=== PATIENT | male | born 1995 | race Caucasian/White ===

== ENCOUNTER 2020-04-22 13:07 | Inpatient (IN) | payer SELFPAY ==
[~2020-04-22] VITALS: Ht 182.9 cm; Wt 102.9 kg
[~2020-04-22 13:07] MED LIST: ACET325T9 PO; AMOX1TAB11 PO; CALC200T23 PO; CITA10TA8 PO; LACT1CAP19 PO; OXYC1TAB19 PO; POTA20TA4 PO; TRAZ-118 PO
--- NOTE | 2020-04-22 13:42 | PHYS DOC ---
Past Medical History Past Medical History: Diverticulitis Past Surgical History: No Surgical History Smoking Status: Never Smoker Alcohol Use: None General Adult EDM: Chief Complaint: NAUSEA/VOMITING/DIARRHEA HPI: HPI: Patient is a 25 year old male presented to ER with left lower abdominal pain associate with nausea vomiting with some diarrhea since this morning. Patient has history of diverticulitis recently, he was admitted at this hospital. While he was in the hospital he had diarrhea and nausea mild vomiting abdominal pain. Patient was given Dilaudid and fentanyl in the hospital for pain control. Patient was sent home with Augmentin. Patient with test negative for C. difficile colitis while he was in the hospital. Patient said symptom is similar to his previous diverticulitis infection. Patient denies any cough or fever. Patient denies being exposed to anybody who tested positive for COVID-19. Review of Systems: Review of Systems: Constitutional: Denies fever or chills. [] Eyes: Denies change in visual acuity. [] HENT: Denies nasal congestion or sore throat. [] Respiratory: Denies cough or shortness of breath. [] Cardiovascular: Denies chest pain or edema. [] GI: Positive for left lower abdominal pain, nausea vomiting, diarrhea : Denies dysuria. [] Musculoskeletal: Denies back pain or joint pain. [] Integument: Denies rash. [] Neurologic: Denies headache, focal weakness or sensory changes. [] Endocrine: Denies polyuria or polydipsia. [] Lymphatic: Denies swollen glands. [] Psychiatric: Denies depression or anxiety. [] Heart Score: Risk Factors: Risk Factors: DM, Current or recent (<one month) smoker, HTN, HLP, family history of CAD, obesity. Risk Scores: Score 0 - 3: 2.5% MACE over next 6 weeks - Discharge Home Score 4 - 6: 20.3% MACE over next 6 weeks - Admit for Clinical Observation Score 7 - 10: 72.7% MACE over next 6 weeks - Early Invasive Strategies Current Medications: Current Medications Medications (Trade) Dose Ordered Sig/Gayatri Start Time Stop Time Status Last Admin Dose Admin Ondansetron HCl (Zofran) 8 mg 1X ONCE 04/22/20 13:45 04/22/20 13:46 04/22/20 13:39 8 MG Allergies: Allergies: Allergies Coded Allergies Type Severity Reaction Last Updated Verified No Known Drug Allergies 03/30/20 No Physical Exam: PE: Constitutional: Well developed, well nourished, no acute distress, non-toxic appearance. [] HENT: Normocephalic, atraumatic, bilateral external ears normal, oropharynx moist, no oral exudates, nose normal. [] Eyes: PERRLA, EOMI, conjunctiva normal, no discharge. [] Neck: Normal range of motion, no tenderness, supple, no stridor. [] Cardiovascular:Heart rate regular rhythm, no murmur [] Lungs & Thorax: Bilateral breath sounds clear to auscultation [] Abdomen: Bowel sounds normal, soft, There is tenderness to palpation LLQ, NO REBOUND, NO GUARDING, no masses, no pulsatile masses. [] Skin: Warm, dry, no erythema, no rash. [] Back: No tenderness, no CVA tenderness. [] Extremities: No tenderness, no cyanosis, no clubbing, ROM intact, no edema. [] Neurologic: Alert and oriented X 3, normal motor function, normal sensory function, no focal deficits noted. [] Psychologic: Affect normal, judgement normal, mood normal. [] Current Patient Data: Labs: Laboratory Tests Test 04/22/20 13:32 04/22/20 14:00 04/22/20 17:20 Sodium Level 139 mmol/L Potassium Level 4.1 mmol/L Chloride Level 102 mmol/L Carbon Dioxide Level 22 mmol/L Anion Gap 15 Blood Urea Nitrogen 10 mg/dL Creatinine 1.2 mg/dL Estimated GFR (Cockcroft-Gault) 72.6 BUN/Creatinine Ratio 8 Glucose Level 175 mg/dL Calcium Level 10.0 mg/dL Total Bilirubin 0.7 mg/dL Aspartate Amino Transf (AST/SGOT) 46 U/L Alanine Aminotransferase (ALT/SGPT) 76 U/L Alkaline Phosphatase 50 U/L Total Protein 8.2 g/dL Albumin 4.5 g/dL Albumin/Globulin Ratio 1.2 Lipase 165 U/L White Blood Count 15.6 x10^3/uL Red Blood Count 5.42 x10^6/uL Hemoglobin 15.7 g/dL Hematocrit 45.5 % Mean Corpuscular Volume 84 fL Mean Corpuscular Hemoglobin 29 pg Mean Corpuscular Hemoglobin Concent 35 g/dL Red Cell Distribution Width 14.2 % Platelet Count 308 x10^3/uL Neutrophils (%) (Auto) 84 % Lymphocytes (%) (Auto) 10 % Monocytes (%) (Auto) 6 % Eosinophils (%) (Auto) 0 % Basophils (%) (Auto) 1 % Neutrophils # (Auto) 13.1 x10^3/uL Lymphocytes # (Auto) 1.5 x10^3/uL Monocytes # (Auto) 0.9 x10^3/uL Eosinophils # (Auto) 0.1 x10^3/uL Basophils # (Auto) 0.1 x10^3/uL Segmented Neutrophils % 89 % Band Neutrophils % 1 % Lymphocytes % 7 % Monocytes % 3 % Platelet Estimate Adequate Urine Collection Type Unknown Urine Color Yellow Urine Clarity Clear Urine pH 8.5 Urine Specific [place] >=1.030 Urine Protein Negative mg/dL Urine Glucose (UA) Negative mg/dL Urine Ketones (Stick) 40 mg/dL Urine Blood Negative Urine Nitrite Negative Urine Bilirubin Negative Urine Urobilinogen Dipstick 0.2 mg/dL Urine Leukocyte Esterase Negative Urine RBC 0 /HPF Urine WBC 0 /HPF Urine Bacteria 0 /HPF Urine Mucus Slight /LPF Urine Opiates Screen Pos Urine Methadone Screen Neg Urine Barbiturates Neg Urine Phencyclidine Screen Neg Urine Amphetamine/Methamphetamine Neg Urine Benzodiazepines Screen Neg Urine Cocaine Screen Neg Urine Cannabinoids Screen Pos Urine Ethyl Alcohol Neg Current Medications Medications (Trade) Dose Ordered Sig/Gayatri Route PRN Reason Start Time Stop Time Status Last Admin Dose Admin Ondansetron HCl (Zofran) 8 mg 1X ONCE IVP 04/22/20 13:45 04/22/20 13:46 DC 04/22/20 13:39 Metronidazole 100 ml @ 100 mls/hr 1X ONCE IV 04/22/20 14:00 04/22/20 14:59 DC 04/22/20 13:58 Morphine Sulfate (Morphine Sulfate) 4 mg 1X ONCE IV 04/22/20 14:00 04/22/20 14:01 DC 04/22/20 13:56 Piperacillin Sod/ Tazobactam Sod 3.375 gm/Sodium Chloride 50 ml @ 100 mls/hr 1X ONCE IV 04/22/20 14:45 04/22/20 15:14 DC 04/22/20 14:51 Sodium Chloride 1,000 ml @ 1,000 mls/hr 1X ONCE IV 04/22/20 14:45 04/22/20 15:44 DC 04/22/20 14:50 Iohexol (Omnipaque 300 Mg/ml) 75 ml 1X ONCE IV 04/22/20 15:00 04/22/20 15:01 DC 04/22/20 15:00 Metoclopramide HCl (Reglan Vial) 10 mg 1X ONCE IVP 04/22/20 15:00 04/22/20 15:01 DC 04/22/20 14:54 Info (CONTRAST GIVEN -- Rx MONITORING) 1 each PRN DAILY PRN MC SEE COMMENTS 04/22/20 15:00 04/24/20 14:59 Morphine Sulfate (Morphine Sulfate) 4 mg 1X ONCE IV 04/22/20 16:15 04/22/20 16:16 DC 04/22/20 16:11 Ondansetron HCl (Zofran) 4 mg 1X ONCE IVP 04/22/20 16:15 04/22/20 16:16 DC 04/22/20 16:12 Vital Signs: Vital Signs Date Time Temp Pulse Resp B/P (MAP) Pulse Ox O2 Delivery O2 Flow Rate FiO2 04/22/20 13:19 97.4 67 18 137/74 (95) 100 Room Air 97.4 EKG: EKG: [] Radiology/Procedures: Radiology/Procedures: [facility] [address] [facility] [place], [place] [id number] IMAGING REPORT Signed PATIENT: MILANA SONI ACCOUNT: [id number] : 1995 LOCATION: ER AGE: 25 SEX: M EXAM STATUS: REG ER ORD. PHYSICIAN: GEORGE LINO DO REASON: llq abdominal pain PROCEDURE: CT ABD PELV W/ IV CONTRST ONLY CT abdomen pelvis with contrast dated 04/22/2020. No comparison available. Clinical data indication: Left lower quadrant pain. TECHNIQUE: Contiguous axial imaging the abdomen pelvis performed after the administration of 75 cc Omnipaque 300. One or more of the following individualized dose reduction techniques were utilized for this examination: 1. Automated exposure control 2. Adjustment of the mA and/or kV according to patient size 3. Use of iterative reconstruction technique. FINDINGS: Limited images of lung bases are clear. Heart size within normal limits. No pleural or pericardial effusion. Liver is of diffuse low density, compatible with fatty infiltration. No apparent mass. Biliary tree normal in caliber. Gallbladder unremarkable. Spleen is normal in size. Pancreas, adrenal glands and kidneys are unremarkable. No hydronephrosis. Unopacified GI tract normal in caliber and contour. No focal bowel wall thickening. There are scattered diverticula throughout the colon. No paracolonic inflammatory changes. No free fluid or lymphadenopathy. The appendix is normal in caliber. Abdominal aorta normal in caliber. Images of pelvis show nondistended urinary bladder. Prostate gland is upper limits of normal in size. No free fluid or lymphadenopathy. Bone windows show no acute findings. IMPRESSION: 1. No acute abnormality of abdomen or pelvis. Normal appendix. 2. Diverticulosis with no evidence of acute diverticulitis. 3. Mild fatty infiltration of the liver. Electronically signed by: Haroon Montiel MD (04/22/2020 3:59 PM) [facility] DICTATED and SIGNED BY: HAROON MONTIEL MD DATE: 04/22/20 155 Course & Med Decision Making: Course & Med Decision Making Pertinent Labs and Imaging studies reviewed. (See chart for details) Patient continues to have pain with nausea and vomiting, will need to admit him for iv fluid and iv medication. Discussed with Dr. Blas who agreed to admit the patient. Tim Disclaimer: Tim Disclaimer: This electronic medical record was generated, in whole or in part, using a voice recognition dictation system. Departure Departure Impression: Primary Impression: Intractable nausea and vomiting Additional Impressions: Abdominal pain Diarrhea Disposition: 09 ADMITTED INPT THIS HOSP Admitting Physician: [facility] (DR. BLAS) Condition: STABLE Referrals: DINA LAZARO MD (PCP) GEORGE LINO DO Apr 22, 2020 13:42
[2020-04-22] MEDS ORDERED: ONDANSETRON PF 4 MG/2 ML VIAL. IVP ONE ×2 (13:45→16:15)
[2020-04-22 13:58] LABS: CREATININE 1.2 mg/dL (0.7-1.3); GFR 72.6; POTASSIUM 4.1 mmol/L (3.5-5.1)
[2020-04-22] MEDS ORDERED: MORPHINE SULFATE 4 MG/ML VIAL. IV ONE ×2 (14:00→16:15)
[2020-04-22 14:06] LABS: ALBUMIN 4.5 g/dL (3.4-5.0); ALBUMIN/GLOBULIN RATIO 1.2 (1.0-1.7); TOTAL BILIRUBIN 0.7 mg/dL (0.2-1.0); TOTAL PROTEIN 8.2 g/dL (6.4-8.2)
[2020-04-22 14:07] LABS: BASO # 0.1 x10^3/uL (0.0-0.2); BASO % 1 % (0-3); EOS # 0.1 x10^3/uL (0.0-0.7); EOS % 0 % (0-3); HEMATOCRIT 45.5 % (39.0-53.0); HEMOGLOBIN 15.7 g/dL (13.0-17.5); LYMPH # 1.5 x10^3/uL (1.0-4.8); LYMPH % 10 % (24-48); MEAN CORPUSCULAR HEMOGLOBIN 29 pg (25-35); MEAN CORPUSCULAR HGB CONC 35 g/dL (31-37); MEAN CORPUSCULAR VOLUME 84 fL (79-100); MONO # 0.9 x10^3/uL (0.0-1.1); MONO % 6 % (0-9); NEUT # 13.1 x10^3/uL (1.8-7.7); NEUT % 84 % (31-73); PLATELET COUNT 308 x10^3/uL (140-400); RED BLOOD COUNT 5.42 x10^6/uL (4.30-5.70); RED CELL DISTRIBUTION WIDTH 14.2 % (11.5-14.5); WHITE BLOOD COUNT 15.6 x10^3/uL (4.0-11.0)
[2020-04-22] MEDS ORDERED: PIPERACILLIN/TAZOBACTAM 3.375 GM in IV NORMAL SALINE 50ML 50 ML IV ONE (14:45)
[2020-04-22] MEDS ORDERED: IV NORMAL SALINE 1000ML BAG 1,000 ML IV ONE (14:45)
[2020-04-22] MEDS ORDERED: CONTRAST GIVEN. MC PRN (15:00)
[2020-04-22] MEDS ORDERED: IOHEXOL 300 MG/ML 100ML VIAL. IV ONE (15:00)
[2020-04-22] MEDS ORDERED: METOCLOPRAMIDE HCL 10 MG/2 ML VIAL. IVP ONE (15:00)
[2020-04-22 15:20] LABS: % BANDS 1 % (0-9); % LYMPHS 7 % (24-48); % MONOS 3 % (0-10); % SEGS 89 % (35-66); PLT ESTIMATE ADEQUATE (ADEQUATE)
--- NOTE | 2020-04-22 16:02 | RAD ---
CT abdomen pelvis with contrast dated 04/22/2020. No comparison available. Clinical data indication: Left lower quadrant pain. TECHNIQUE: Contiguous axial imaging the abdomen pelvis performed after the administration of 75 cc Omnipaque 300. One or more of the following individualized dose reduction techniques were utilized for this examination: 1. Automated exposure control 2. Adjustment of the mA and/or kV according to patient size 3. Use of iterative reconstruction technique. FINDINGS: Limited images of lung bases are clear. Heart size within normal limits. No pleural or pericardial effusion. Liver is of diffuse low density, compatible with fatty infiltration. No apparent mass. Biliary tree normal in caliber. Gallbladder unremarkable. Spleen is normal in size. Pancreas, adrenal glands and kidneys are unremarkable. No hydronephrosis. Unopacified GI tract normal in caliber and contour. No focal bowel wall thickening. There are scattered diverticula throughout the colon. No paracolonic inflammatory changes. No free fluid or lymphadenopathy. The appendix is normal in caliber. Abdominal aorta normal in caliber. Images of pelvis show nondistended urinary bladder. Prostate gland is upper limits of normal in size. No free fluid or lymphadenopathy. Bone windows show no acute findings. IMPRESSION: 1. No acute abnormality of abdomen or pelvis. Normal appendix. 2. Diverticulosis with no evidence of acute diverticulitis. 3. Mild fatty infiltration of the liver. Electronically signed by: Haroon Montiel MD (04/22/2020 3:59 PM) JONATHAN
[2020-04-22] MEDS ORDERED: IV NORMAL SALINE 1000ML BAG 1,000 ML IV SCH (16:39)
[2020-04-22] MEDS ORDERED: ONDANSETRON PF 4 MG/2 ML VIAL. IV PRN (16:45)
[2020-04-22] MEDS ORDERED: fentaNYL PF VIAL 100 MCG/2 ML VIAL IV PRN (16:45)
[2020-04-22 17:32] LABS: BILIRUBIN,URINE NEGATIVE (NEG); CLARITY,URINE CLEAR; COLOR,URINE YELLOW; NITRITE,URINE NEGATIVE (NEG); PH,URINE 8.5 (<5.0-8.0); PROTEIN,URINE NEGATIVE (NEG-TRACE); UROBILINOGEN,URINE 0.2 mg/dL (0.2 mg/dL)
[2020-04-22 17:40] LABS: BACTERIA,URINE 0 /HPF (0-FEW); RBC,URINE 0 /HPF (0-2); WBC,URINE 0 /HPF (0-4)
[2020-04-22] MEDS: IV NORMAL SALINE 1000ML BAG 1,000 ML IV SCH (18:00)
[2020-04-22] MEDS ORDERED: MAGNESIUM SULFATE 2GM 50 ML IV SCH (18:00)
[2020-04-22] MEDS ORDERED: ONDANSETRON PF 4 MG/2 ML VIAL. IVP PRN (18:00)
[2020-04-22] MEDS ORDERED: DEXTROSE 50% 25 GM / 50ML DISP.SYRIN. IV PRN (18:00)
[2020-04-22] MEDS ORDERED: DOCUSATE SODIUM 100 MG CAPSULE. PO PRN (18:00)
[2020-04-22] MEDS ORDERED: POTASSIUM CHLORIDE 10MEQ 100 ML IV PRN (18:00)
[2020-04-22] MEDS ORDERED: POTASSIUM CHLORIDE 10MEQ 100 ML IV SCH (18:00)
[2020-04-22] MEDS ORDERED: ACETAMINOPHEN 325 MG TABLET. PO PRN (18:00)
[2020-04-22] MEDS ORDERED: HYDROmorphone 2 MG/ML VIAL IVP PRN (18:00)
[2020-04-22] MEDS ORDERED: SENNOSIDES 8.6 MG TABLET PO PRN (18:00)
[2020-04-22] MEDS ORDERED: POTASSIUM CHLORIDE 20 MEQ TABLET.ER. PO PRN (18:00)
--- NOTE | 2020-04-22 18:14 | PDOC1 ---
History and Physical Date of Service: DOS: DATE: 04/22/20 TIME: 17:57 Chief Complaint: Chief Complain: N/V and ABD pain History of Present Illness: HPI: 25 year old male presented to ER with left lower abdominal pain associate with nausea vomiting with some diarrhea since this morning. Patient has history of diverticulitis recently, he was admitted at this hospital. While he was in the hospital he had diarrhea and nausea mild vomiting abdominal pain. Patient was given Dilaudid and fentanyl in the hospital for pain control. Patient was sent home with Augmentin. Patient with test negative for C. difficile colitis while he was in the hospital. Patient said symptom is similar to his previous diverticulitis infection. Patient denies any cough or fever. Patient denies being exposed to anybody who tested positive for COVID-19. Past Medical/Surgical History: PMH/PSH: Past Medical History: Diverticulitis Past Surgical History: No Surgical History Allergies: Allergies: Coded Allergies: No Known Drug Allergies (Unverified , 03/30/20) Family History: Family History: Reviewed, mother with history of diabetes and colon cancer. No history of Crohn's, ulcerative colitis, or celiac's disease Social History: Social History: Marijuana use but 2-3 times per week Current Medications: Current Medications Current Medications Ondansetron HCl (Zofran) 8 mg 1X ONCE IVP Last administered on 04/22/20at 13:39; Start 04/22/20 at 13:45; Stop 04/22/20 at 13:46; Status DC Metronidazole 100 ml @ 100 mls/hr 1X ONCE IV Last administered on 04/22/20at 13:58; Start 04/22/20 at 14:00; Stop 04/22/20 at 14:59; Status DC Morphine Sulfate (Morphine Sulfate) 4 mg 1X ONCE IV Last administered on 04/22/20at 13:56; Start 04/22/20 at 14:00; Stop 04/22/20 at 14:01; Status DC Piperacillin Sod/ Tazobactam Sod 3.375 gm/Sodium Chloride 50 ml @ 100 mls/hr 1X ONCE IV Last administered on 04/22/20at 14:51; Start 04/22/20 at 14:45; Stop 04/22/20 at 15:14; Status DC Sodium Chloride 1,000 ml @ 1,000 mls/hr 1X ONCE IV Last administered on 04/22/20at 14:50; Start 04/22/20 at 14:45; Stop 04/22/20 at 15:44; Status DC Iohexol (Omnipaque 300 Mg/ml) 75 ml 1X ONCE IV Last administered on 04/22/20at 15:00; Start 04/22/20 at 15:00; Stop 04/22/20 at 15:01; Status DC Metoclopramide HCl (Reglan Vial) 10 mg 1X ONCE IVP Last administered on 04/22/20at 14:54; Start 04/22/20 at 15:00; Stop 04/22/20 at 15:01; Status DC Info (CONTRAST GIVEN -- Rx MONITORING) 1 each PRN DAILY PRN MC SEE COMMENTS; Start 04/22/20 at 15:00; Stop 04/24/20 at 14:59 Morphine Sulfate (Morphine Sulfate) 4 mg 1X ONCE IV Last administered on 04/22/20at 16:11; Start 04/22/20 at 16:15; Stop 04/22/20 at 16:16; Status DC Ondansetron HCl (Zofran) 4 mg 1X ONCE IVP Last administered on 04/22/20at 16:12; Start 04/22/20 at 16:15; Stop 04/22/20 at 16:16; Status DC Ondansetron HCl (Zofran) 4 mg PRN Q8HRS PRN IV NAUSEA/VOMITING; Start 04/22/20 at 16:45; Stop 04/23/20 at 16:44 Fentanyl Citrate (Fentanyl 2ml Vial) 50 mcg PRN Q1HR PRN IV PAIN Last administered on 04/22/20at 17:31; Start 04/22/20 at 16:45; Stop 04/23/20 at 16:44 Sodium Chloride 1,000 ml @ 100 mls/hr Q10H IV Last administered on 04/22/20at 17:31; Start 04/22/20 at 16:39; Stop 04/23/20 at 16:38 Active Scripts Active Culturelle (Lactobacillus Rhamnosus Gg) 1 Each Cap.sprink 1 Cap PO BID 30 Days Calcium Carbonate 200 Mg Tab.chew 500 Mg PO PRN Q3HRS PRN 10 Days Klor-Con M20 (Potassium Chloride) 20 Meq Tab.er.prt 20 Meq PO DAILYWBKFT 14 Days Trazodone Hcl 50 Mg Tablet 50 Mg PO QHS 30 Days Celexa (Citalopram Hydrobromide) 10 Mg Tablet 10 Mg PO DAILY 30 Days Tylenol (Acetaminophen) 325 Mg Tablet 650 Mg PO PRN Q6HRS PRN 30 Days Percocet 7.5-325 Mg Tablet (Oxycodone/Acetaminophen) 1 Each Tablet 1 Tab PO PRN Q4HRS PRN 10 Days Amox Tr-K Clv 875-125 Mg Tab (Amoxicillin/Potassium Clav) 1 Each Tablet 1 Tab PO BID 10 Days ROS: Review of Systems Review of System REVIEW OF SYSTEMS: GENERAL: Denies weakness SKIN: No bruising, hair changes or rashes. EYES: No blurred, double or loss of vision. NOSE AND THROAT: No history of nosebleeds, hoarseness or sore throat. HEART: No history of palpitations, chest pain or shortness of breath on exertion. LUNGS: Denies cough, hemoptysis, wheezing or shortness of breath. GASTROINTESTINAL: Denies changes in appetite, nausea, vomiting, diarrhea or constipation. GENITOURINARY: No history of frequency, urgency, hesitancy or nocturia. NEUROLOGIC: Denies history of numbness, tingling, or tremor. PSYCHIATRIC: No history of panic, anxiety or depression. ENDOCRINE: No history of heat or cold intolerance, polyuria or polydipsia. EXTREMITIES: Denies joint pain, pain on walking or stiffness. Physical Exam: Vital Signs: Vital Signs Date Time Temp Pulse Resp B/P (MAP) Pulse Ox O2 Delivery O2 Flow Rate FiO2 04/22/20 17:20 70 131/76 (94) 100 Nasal Cannula 2.0 04/22/20 16:37 16 04/22/20 16:00 97.9 97.9 Physcial Exam: GEN: No apparent distress. Alert and oriented HEENT: Normal cephalic, atraumatic, external auditory canals are patent EYES: Extraocular muscles are intact, pupil are equally round and reactive to light and accommodation MUSCULOSKELETAL: Well developed , well nourished, good range of motion ENDOCRINE: No thyromegaly was palpated LYMPHATICS: No cervical chain or axillary nodes were noted HEMATOPOIETIC: No bruising NECK: Supple, no JVD, no thyromegaly was noted LUNGS: Clear to auscultation in all lung grissom without rhonchi or wheezing HEART: RRR, S!, S2 present. Peripheral pulses intact, no obvious murmurs noted ABDOMEN: Soft, nontender. Positive bowel sounds, no organomegaly, normal bowel sounds EXTREMITIES: Without clubbing, cyanosis, or edema. Pedal pulses intact. Negative Homans sign NEUROLOGIC: Normal speech and tone. A&O x 3, moves all extremities, no obvious focal deficits PSYCHIATRIC: Normal affect, normal mood. Stable SKIN: No ulcerations or rashes, good skin turgor, no jaundice VASCULAR: Good capillary refill, neurovascular bundle appears to be intact Labs: Labs: Laboratory Tests Test 04/22/20 13:32 04/22/20 14:00 04/22/20 17:20 Sodium Level 139 mmol/L (136-145) Potassium Level 4.1 mmol/L (3.5-5.1) Chloride Level 102 mmol/L (98-107) Carbon Dioxide Level 22 mmol/L (21-32) Anion Gap 15 (6-14) Blood Urea Nitrogen 10 mg/dL (8-26) Creatinine 1.2 mg/dL (0.7-1.3) Estimated GFR (Cockcroft-Gault) 72.6 BUN/Creatinine Ratio 8 (6-20) Glucose Level 175 mg/dL (70-99) Calcium Level 10.0 mg/dL (8.5-10.1) Total Bilirubin 0.7 mg/dL (0.2-1.0) Aspartate Amino Transf (AST/SGOT) 46 U/L (15-37) Alanine Aminotransferase (ALT/SGPT) 76 U/L (16-63) Alkaline Phosphatase 50 U/L (46-116) Total Protein 8.2 g/dL (6.4-8.2) Albumin 4.5 g/dL (3.4-5.0) Albumin/Globulin Ratio 1.2 (1.0-1.7) Lipase 165 U/L (73-393) White Blood Count 15.6 x10^3/uL (4.0-11.0) Red Blood Count 5.42 x10^6/uL (4.30-5.70) Hemoglobin 15.7 g/dL (13.0-17.5) Hematocrit 45.5 % (39.0-53.0) Mean Corpuscular Volume 84 fL (79-100) Mean Corpuscular Hemoglobin 29 pg (25-35) Mean Corpuscular Hemoglobin Concent 35 g/dL (31-37) Red Cell Distribution Width 14.2 % (11.5-14.5) Platelet Count 308 x10^3/uL (140-400) Neutrophils (%) (Auto) 84 % (31-73) Lymphocytes (%) (Auto) 10 % (24-48) Monocytes (%) (Auto) 6 % (0-9) Eosinophils (%) (Auto) 0 % (0-3) Basophils (%) (Auto) 1 % (0-3) Neutrophils # (Auto) 13.1 x10^3/uL (1.8-7.7) Lymphocytes # (Auto) 1.5 x10^3/uL (1.0-4.8) Monocytes # (Auto) 0.9 x10^3/uL (0.0-1.1) Eosinophils # (Auto) 0.1 x10^3/uL (0.0-0.7) Basophils # (Auto) 0.1 x10^3/uL (0.0-0.2) Segmented Neutrophils % 89 % (35-66) Band Neutrophils % 1 % (0-9) Lymphocytes % 7 % (24-48) Monocytes % 3 % (0-10) Platelet Estimate Adequate (ADEQUATE) Urine Collection Type Unknown Urine Color Yellow Urine Clarity Clear Urine pH 8.5 (<5.0-8.0) Urine Specific [place] >=1.030 (1.000-1.030) Urine Protein Negative mg/dL (NEG-TRACE) Urine Glucose (UA) Negative mg/dL (NEG) Urine Ketones (Stick) 40 mg/dL (NEG) Urine Blood Negative (NEG) Urine Nitrite Negative (NEG) Urine Bilirubin Negative (NEG) Urine Urobilinogen Dipstick 0.2 mg/dL (0.2 mg/dL) Urine Leukocyte Esterase Negative (NEG) Urine RBC 0 /HPF (0-2) Urine WBC 0 /HPF (0-4) Urine Bacteria 0 /HPF (0-FEW) Urine Mucus Slight /LPF Laboratory Tests Test 04/22/20 13:32 04/22/20 14:00 04/22/20 17:20 Sodium Level 139 mmol/L (136-145) Potassium Level 4.1 mmol/L (3.5-5.1) Chloride Level 102 mmol/L (98-107) Carbon Dioxide Level 22 mmol/L (21-32) Anion Gap 15 (6-14) Blood Urea Nitrogen 10 mg/dL (8-26) Creatinine 1.2 mg/dL (0.7-1.3) Estimated GFR (Cockcroft-Gault) 72.6 BUN/Creatinine Ratio 8 (6-20) Glucose Level 175 mg/dL (70-99) Calcium Level 10.0 mg/dL (8.5-10.1) Total Bilirubin 0.7 mg/dL (0.2-1.0) Aspartate Amino Transf (AST/SGOT) 46 U/L (15-37) Alanine Aminotransferase (ALT/SGPT) 76 U/L (16-63) Alkaline Phosphatase 50 U/L (46-116) Total Protein 8.2 g/dL (6.4-8.2) Albumin 4.5 g/dL (3.4-5.0) Albumin/Globulin Ratio 1.2 (1.0-1.7) Lipase 165 U/L (73-393) White Blood Count 15.6 x10^3/uL (4.0-11.0) Red Blood Count 5.42 x10^6/uL (4.30-5.70) Hemoglobin 15.7 g/dL (13.0-17.5) Hematocrit 45.5 % (39.0-53.0) Mean Corpuscular Volume 84 fL (79-100) Mean Corpuscular Hemoglobin 29 pg (25-35) Mean Corpuscular Hemoglobin Concent 35 g/dL (31-37) Red Cell Distribution Width 14.2 % (11.5-14.5) Platelet Count 308 x10^3/uL (140-400) Neutrophils (%) (Auto) 84 % (31-73) Lymphocytes (%) (Auto) 10 % (24-48) Monocytes (%) (Auto) 6 % (0-9) Eosinophils (%) (Auto) 0 % (0-3) Basophils (%) (Auto) 1 % (0-3) Neutrophils # (Auto) 13.1 x10^3/uL (1.8-7.7) Lymphocytes # (Auto) 1.5 x10^3/uL (1.0-4.8) Monocytes # (Auto) 0.9 x10^3/uL (0.0-1.1) Eosinophils # (Auto) 0.1 x10^3/uL (0.0-0.7) Basophils # (Auto) 0.1 x10^3/uL (0.0-0.2) Segmented Neutrophils % 89 % (35-66) Band Neutrophils % 1 % (0-9) Lymphocytes % 7 % (24-48) Monocytes % 3 % (0-10) Platelet Estimate Adequate (ADEQUATE) Urine Collection Type Unknown Urine Color Yellow Urine Clarity Clear Urine pH 8.5 (<5.0-8.0) Urine Specific [place] >=1.030 (1.000-1.030) Urine Protein Negative mg/dL (NEG-TRACE) Urine Glucose (UA) Negative mg/dL (NEG) Urine Ketones (Stick) 40 mg/dL (NEG) Urine Blood Negative (NEG) Urine Nitrite Negative (NEG) Urine Bilirubin Negative (NEG) Urine Urobilinogen Dipstick 0.2 mg/dL (0.2 mg/dL) Urine Leukocyte Esterase Negative (NEG) Urine RBC 0 /HPF (0-2) Urine WBC 0 /HPF (0-4) Urine Bacteria 0 /HPF (0-FEW) Urine Mucus Slight /LPF Images: Images IMPRESSION: 1. No acute abnormality of abdomen or pelvis. Normal appendix. 2. Diverticulosis with no evidence of acute diverticulitis. 3. Mild fatty infiltration of the liver. Assessment/Plan Assessment/Plan Acute abdominal pain with intractable nausea vomiting History of diverticulitis History of cannabinoid use Transaminitis consistent with hepatic steatosis Admit to medicine for further management GI consult Continue IV fluids Continue IV antiemetic medications Pending stool studies Pending C. difficile studies Continue IV antibiotics SCD for DVT prophylaxis Protonix GI prophylaxis N.p.o. Full code Discussed with RN and SW Disposition inpatient care as above Surrogate decision maker is the mother Justifications for Admission Other Justification Diverticulitis KRISTI AGUSTIN MD Apr 22, 2020 18:14
[2020-04-22] MEDS ORDERED: ELECTROLYTE (NON-ICU) PROTOCOL. MC PRN (18:30)
[2020-04-22] MEDS: PROCHLORPERAZINE 10 MG/2 ML VIAL. IV PRN (18:56)
[2020-04-22] MEDS: cefTRIAXone IV Push 1 GM VIAL. IVP SCH (19:02)
[2020-04-22] MEDS: HYDROmorphone 2 MG/ML VIAL IVP PRN (20:47)
[2020-04-22] MEDS ORDERED: MAGNESIUM OXIDE 400 MG TABLET PO SCH (21:00)
[2020-04-22 21:32] VITALS: BP 140/60
[2020-04-22] MEDS ORDERED: TRAZ-118 PO (21:37)
[2020-04-22 22:54] VITALS: BP 123/61
[2020-04-23] MEDS: IV NORMAL SALINE 1000ML BAG 1,000 ML IV SCH ×3 (03:01→21:13)
[2020-04-23] MEDS: HYDROmorphone 2 MG/ML VIAL IVP PRN ×3 (03:02→21:08)
[2020-04-23] MEDS: PROCHLORPERAZINE 10 MG/2 ML VIAL. IV PRN ×4 (03:02→21:08)
[2020-04-23 03:11] VITALS: BP 117/62
[2020-04-23 03:44] LABS: BARBITURATES NEG (NEG); BENZODIAZEPINES NEG (NEG); CANNABINOIDS POS (NEG); COCAINE NEG (NEG); METHADONE NEG (NEG); OPIATES POS (NEG); PHENCYCLIDINE NEG (NEG)
[2020-04-23 03:45] LABS: AMPHETAMINE/METHAMPHETAMINE NEG (NEG)
[2020-04-23 06:40] VITALS: BP 119/57
[2020-04-23 08:09] LABS: BASO # 0.1 x10^3/uL (0.0-0.2); BASO % 1 % (0-3); EOS # 0.1 x10^3/uL (0.0-0.7); EOS % 1 % (0-3); HEMATOCRIT 42.1 % (39.0-53.0); HEMOGLOBIN 13.8 g/dL (13.0-17.5); LYMPH % 19 % (24-48); MEAN CORPUSCULAR HEMOGLOBIN 28 pg (25-35); MEAN CORPUSCULAR HGB CONC 33 g/dL (31-37); MEAN CORPUSCULAR VOLUME 86 fL (79-100); MONO # 0.8 x10^3/uL (0.0-1.1); MONO % 8 % (0-9); NEUT # 7.7 x10^3/uL (1.8-7.7); NEUT % 72 % (31-73); PLATELET COUNT 232 x10^3/uL (140-400); RED BLOOD COUNT 4.92 x10^6/uL (4.30-5.70); RED CELL DISTRIBUTION WIDTH 14.5 % (11.5-14.5); WHITE BLOOD COUNT 10.7 x10^3/uL (4.0-11.0)
--- NOTE | 2020-04-23 08:09 | PDOC ---
[facility] [facility] PROGRESS NOTE Date of Service DOS: DATE: 04/23/20 TIME: 07:58 Chief Complaint Chief Complaint Acute abdominal pain with intractable nausea vomiting History of diverticulitis History of cannabinoid use Transaminitis consistent with hepatic steatosis Plan: Admit to medicine for further management GI consult Continue IV fluids Continue IV antiemetic medications Pending stool studies Pending C. difficile studies Continue IV antibiotics SCD for DVT prophylaxis Protonix GI prophylaxis N.p.o. Full code Discussed with RN and SW Disposition inpatient care as above Surrogate decision maker is the mother History of Present Illness History of Present Illness 25 year old male presented to ER with left lower abdominal pain associate with nausea vomiting with some diarrhea since this morning. Patient has history of diverticulitis recently, he was admitted at this hospital. While he was in the hospital he had diarrhea and nausea mild vomiting abdominal pain. Patient was given Dilaudid and fentanyl in the hospital for pain control. Patient was sent home with Augmentin. Patient with test negative for C. difficile colitis while he was in the hospital. Patient said symptom is similar to his previous diverticulitis infection. Patient denies any cough or fever. Patient denies being exposed to anybody who tested positive for COVID-19. 04/23: Patient is seen and evaluated bedside. Charts and labs reviewed. Patient with history diverticulitis and clinical signs of diverticulitis, recently discharged from our service earlier this month. Radiographic evidence of diverticulosis, without diverticulitis seen on CT abdomen/pelvis. Still complains of left lower quadrant abdominal pain. Had episode of vomiting overnight, denies further episodes of diarrhea. Will attempt clear liquid diet. Consult GI for further recommendations. Vitals/I&O Vitals/I&O: Vital Signs Date Time Temp Pulse Resp B/P (MAP) Pulse Ox O2 Delivery O2 Flow Rate FiO2 04/23/20 06:40 97.9 55 18 119/57 (77) 98 Room Air 97.9 04/22/20 17:20 2.0 I & O 04/22/20 04/22/20 04/23/20 15:00 23:00 07:00 Intake Total 100 ml 1500 ml 1200 ml Output Total 300 ml Balance 100 ml 1500 ml 900 ml Physical Exam General: Alert, Cooperative Heart: Regular rate Lungs: Clear Abdomen: Other (Left lower quadrant tenderness) Extremities: No clubbing Skin: No rashes Labs Labs: Laboratory Tests Test 04/22/20 13:32 10/25/20 14:00 04/22/20 17:20 Sodium Level 139 mmol/L (136-145) Potassium Level 4.1 mmol/L (3.5-5.1) Chloride Level 102 mmol/L (98-107) Carbon Dioxide Level 22 mmol/L (21-32) Anion Gap 15 (6-14) Blood Urea Nitrogen 10 mg/dL (8-26) Creatinine 1.2 mg/dL (0.7-1.3) Estimated GFR (Cockcroft-Gault) 72.6 BUN/Creatinine Ratio 8 (6-20) Glucose Level 175 mg/dL (70-99) Calcium Level 10.0 mg/dL (8.5-10.1) Total Bilirubin 0.7 mg/dL (0.2-1.0) Aspartate Amino Transf (AST/SGOT) 46 U/L (15-37) Alanine Aminotransferase (ALT/SGPT) 76 U/L (16-63) Alkaline Phosphatase 50 U/L (46-116) Total Protein 8.2 g/dL (6.4-8.2) Albumin 4.5 g/dL (3.4-5.0) Albumin/Globulin Ratio 1.2 (1.0-1.7) Lipase 165 U/L (73-393) White Blood Count 15.6 x10^3/uL (4.0-11.0) Red Blood Count 5.42 x10^6/uL (4.30-5.70) Hemoglobin 15.7 g/dL (13.0-17.5) Hematocrit 45.5 % (39.0-53.0) Mean Corpuscular Volume 84 fL (79-100) Mean Corpuscular Hemoglobin 29 pg (25-35) Mean Corpuscular Hemoglobin Concent 35 g/dL (31-37) Red Cell Distribution Width 14.2 % (11.5-14.5) Platelet Count 308 x10^3/uL (140-400) Neutrophils (%) (Auto) 84 % (31-73) Lymphocytes (%) (Auto) 10 % (24-48) Monocytes (%) (Auto) 6 % (0-9) Eosinophils (%) (Auto) 0 % (0-3) Basophils (%) (Auto) 1 % (0-3) Neutrophils # (Auto) 13.1 x10^3/uL (1.8-7.7) Lymphocytes # (Auto) 1.5 x10^3/uL (1.0-4.8) Monocytes # (Auto) 0.9 x10^3/uL (0.0-1.1) Eosinophils # (Auto) 0.1 x10^3/uL (0.0-0.7) Basophils # (Auto) 0.1 x10^3/uL (0.0-0.2) Segmented Neutrophils % 89 % (35-66) Band Neutrophils % 1 % (0-9) Lymphocytes % 7 % (24-48) Monocytes % 3 % (0-10) Platelet Estimate Adequate (ADEQUATE) Urine Collection Type Unknown Urine Color Yellow Urine Clarity Clear Urine pH 8.5 (<5.0-8.0) Urine Specific [place] >=1.030 (1.000-1.030) Urine Protein Negative mg/dL (NEG-TRACE) Urine Glucose (UA) Negative mg/dL (NEG) Urine Ketones (Stick) 40 mg/dL (NEG) Urine Blood Negative (NEG) Urine Nitrite Negative (NEG) Urine Bilirubin Negative (NEG) Urine Urobilinogen Dipstick 0.2 mg/dL (0.2 mg/dL) Urine Leukocyte Esterase Negative (NEG) Urine RBC 0 /HPF (0-2) Urine WBC 0 /HPF (0-4) Urine Bacteria 0 /HPF (0-FEW) Urine Mucus Slight /LPF Urine Opiates Screen Pos (NEG) Urine Methadone Screen Neg (NEG) Urine Barbiturates Neg (NEG) Urine Phencyclidine Screen Neg (NEG) Urine Amphetamine/Methamphetamine Neg (NEG) Urine Benzodiazepines Screen Neg (NEG) Urine Cocaine Screen Neg (NEG) Urine Cannabinoids Screen Pos (NEG) Urine Ethyl Alcohol Neg (NEG) Review of Systems Review of Systems: Denies fever, denies shortness of breath, denies chest pain. Assessment and Plan Assessmemt and Plan Problems Medical Problems: (1) Abdominal pain Status: Acute (2) Diarrhea Status: Acute (3) Intractable nausea and vomiting Status: Acute Comment Review of Relevant I have reviewed the following items lee (where applicable) has been applied. Medications: Current Medications Medications (Trade) Dose Ordered Sig/Gayatri Route PRN Reason Start Time Stop Time Status Last Admin Dose Admin Ondansetron HCl (Zofran) 8 mg 1X ONCE IVP 04/22/20 13:45 04/22/20 13:46 DC 04/22/20 13:39 Metronidazole 100 ml @ 100 mls/hr 1X ONCE IV 04/22/20 14:00 04/22/20 14:59 DC 04/22/20 13:58 Morphine Sulfate (Morphine Sulfate) 4 mg 1X ONCE IV 04/22/20 14:00 04/22/20 14:01 DC 04/22/20 13:56 Piperacillin Sod/ Tazobactam Sod 3.375 gm/Sodium Chloride 50 ml @ 100 mls/hr 1X ONCE IV 04/22/20 14:45 04/22/20 15:14 DC 04/22/20 14:51 Sodium Chloride 1,000 ml @ 1,000 mls/hr 1X ONCE IV 04/22/20 14:45 04/22/20 15:44 DC 04/22/20 14:50 Iohexol (Omnipaque 300 Mg/ml) 75 ml 1X ONCE IV 04/22/20 15:00 04/22/20 15:01 DC 04/22/20 15:00 Metoclopramide HCl (Reglan Vial) 10 mg 1X ONCE IVP 04/22/20 15:00 04/22/20 15:01 DC 04/22/20 14:54 Morphine Sulfate (Morphine Sulfate) 4 mg 1X ONCE IV 04/22/20 16:15 04/22/20 16:16 DC 04/22/20 16:11 Ondansetron HCl (Zofran) 4 mg 1X ONCE IVP 04/22/20 16:15 04/22/20 16:16 DC 04/22/20 16:12 Fentanyl Citrate (Fentanyl 2ml Vial) 50 mcg PRN Q1HR PRN IV PAIN 04/22/20 16:45 04/23/20 16:44 04/22/20 17:31 Sodium Chloride 1,000 ml @ 100 mls/hr Q10H IV 04/22/20 16:39 04/22/20 21:10 DC 04/22/20 17:31 Sodium Chloride 1,000 ml @ 100 mls/hr Q10H IV 04/22/20 18:00 04/23/20 03:01 Hydromorphone HCl (Dilaudid) 0.2 mg PRN Q4HRS PRN IVP MODERATE PAIN 4-6 04/22/20 18:00 04/22/20 18:57 Hydromorphone HCl (Dilaudid) 0.4 mg PRN Q4HRS PRN IVP SEVERE PAIN 7-10 04/22/20 18:00 04/23/20 03:02 Prochlorperazine Edisylate (Compazine) 10 mg PRN Q6HRS PRN IV NAUSEA/VOMITING 04/22/20 18:00 04/23/20 03:02 Ceftriaxone Sodium (Rocephin) 1 gm Q24H IVP 04/22/20 19:00 04/22/20 19:02 Metronidazole 100 ml @ 100 mls/hr 1X ONCE IV 04/22/20 18:30 04/22/20 19:29 DC 04/22/20 19:10 Justifications for Admission Abdominal Pain Indications Is NPO status required?: Yes Justification for admission: Patient may require to be NPO for greater 24hours making it medically necessary to manage patient as inpatient. Other Justification Diverticulitis MILANA CORDERO MD Apr 23, 2020 08:09
[2020-04-23 08:20] LABS: CALCIUM 8.9 mg/dL (8.5-10.1); GFR 89.6; MAGNESIUM 2.2 mg/dL (1.8-2.4); PHOSPHORUS 3.5 mg/dL (2.6-4.7); POTASSIUM 3.6 mmol/L (3.5-5.1)
[2020-04-23] MEDS: PANTOPRAZOLE IV PUSH 40 MG VIAL. IVP SCH (09:49)
[2020-04-23 11:00] VITALS: BP 115/55
--- NOTE | 2020-04-23 13:06 | PDOC2 ---
GI CONSULT Date of Service: DATE: 04/23/20 TIME: 12:54 Reason For Consult: recurrent diverticulitis HPI: HPI: 25 y/o male who we recently saw for diverticulitis. Recurrent symptoms for months. Again to ER w/ sudden onset of vomiting, LLQ pain, and liquid stools yesterday morning after taking a hot shower. After recent discharge, finished PO atbx, was eating and stooling normally, and LLQ pain improved (but has never completely resolved since symptoms began). Planned to f/u for outpt colonoscopy. No previous 'scopes. Some recent heartburn. No GB, pancreas, or PUD history. Fatty liver on imaging. Starting using marijuana for nausea after initial symptoms occurred in June. Stopped x 1.5 months - no help w/ avoidance of symptom recurrence. Is a nurse. C Diff negative last admission. PMH: PMH: MDD, CINDA right foot surgery FH: Family History: No pertinent hx (no IBD), Cancer (colon - mother), DM Social History: Smoke: No ALCOHOL: rare Drugs: Marijuana ROS: GEN: Denies fevers, chills, sweats HEENT: Denies blurred vision, sore throat CV: Denies chest pain RESP: Denies shortness of air, cough GI: Per HPI : Denies hematuria, dysuria ENDO: Denies weight changes NEURO: Denies confusion, dizziness MSK: Denies weakness, joint pain/swelling SKIN: Denies jaundice, pruritus Vitals: Vitals: Vital Signs Date Time Temp Pulse Resp B/P (MAP) Pulse Ox O2 Delivery O2 Flow Rate FiO2 04/23/20 11:00 98.4 59 18 115/55 (75) 98 Room Air 98.4 04/23/20 09:46 2.0 Labs: Labs: Laboratory Tests Test 04/22/20 13:32 04/22/20 14:00 04/22/20 17:20 04/22/20 19:05 Sodium Level 139 mmol/L (136-145) Potassium Level 4.1 mmol/L (3.5-5.1) Chloride Level 102 mmol/L (98-107) Carbon Dioxide Level 22 mmol/L (21-32) Anion Gap 15 (6-14) Blood Urea Nitrogen 10 mg/dL (8-26) Creatinine 1.2 mg/dL (0.7-1.3) Estimated GFR (Cockcroft-Gault) 72.6 BUN/Creatinine Ratio 8 (6-20) Glucose Level 175 mg/dL (70-99) Calcium Level 10.0 mg/dL (8.5-10.1) Total Bilirubin 0.7 mg/dL (0.2-1.0) Aspartate Amino Transf (AST/SGOT) 46 U/L (15-37) Alanine Aminotransferase (ALT/SGPT) 76 U/L (16-63) Alkaline Phosphatase 50 U/L (46-116) Total Protein 8.2 g/dL (6.4-8.2) Albumin 4.5 g/dL (3.4-5.0) Albumin/Globulin Ratio 1.2 (1.0-1.7) Lipase 165 U/L (73-393) White Blood Count 15.6 x10^3/uL (4.0-11.0) Red Blood Count 5.42 x10^6/uL (4.30-5.70) Hemoglobin 15.7 g/dL (13.0-17.5) Hematocrit 45.5 % (39.0-53.0) Mean Corpuscular Volume 84 fL (79-100) Mean Corpuscular Hemoglobin 29 pg (25-35) Mean Corpuscular Hemoglobin Concent 35 g/dL (31-37) Red Cell Distribution Width 14.2 % (11.5-14.5) Platelet Count 308 x10^3/uL (140-400) Neutrophils (%) (Auto) 84 % (31-73) Lymphocytes (%) (Auto) 10 % (24-48) Monocytes (%) (Auto) 6 % (0-9) Eosinophils (%) (Auto) 0 % (0-3) Basophils (%) (Auto) 1 % (0-3) Neutrophils # (Auto) 13.1 x10^3/uL (1.8-7.7) Lymphocytes # (Auto) 1.5 x10^3/uL (1.0-4.8) Monocytes # (Auto) 0.9 x10^3/uL (0.0-1.1) Eosinophils # (Auto) 0.1 x10^3/uL (0.0-0.7) Basophils # (Auto) 0.1 x10^3/uL (0.0-0.2) Segmented Neutrophils % 89 % (35-66) Band Neutrophils % 1 % (0-9) Lymphocytes % 7 % (24-48) Monocytes % 3 % (0-10) Platelet Estimate Adequate (ADEQUATE) Urine Collection Type Unknown Urine Color Yellow Urine Clarity Clear Urine pH 8.5 (<5.0-8.0) Urine Specific [place] >=1.030 (1.000-1.030) Urine Protein Negative mg/dL (NEG-TRACE) Urine Glucose (UA) Negative mg/dL (NEG) Urine Ketones (Stick) 40 mg/dL (NEG) Urine Blood Negative (NEG) Urine Nitrite Negative (NEG) Urine Bilirubin Negative (NEG) Urine Urobilinogen Dipstick 0.2 mg/dL (0.2 mg/dL) Urine Leukocyte Esterase Negative (NEG) Urine RBC 0 /HPF (0-2) Urine WBC 0 /HPF (0-4) Urine Bacteria 0 /HPF (0-FEW) Urine Mucus Slight /LPF Urine Opiates Screen Pos (NEG) Urine Methadone Screen Neg (NEG) Urine Barbiturates Neg (NEG) Urine Phencyclidine Screen Neg (NEG) Urine Amphetamine/Methamphetamine Neg (NEG) Urine Benzodiazepines Screen Neg (NEG) Urine Cocaine Screen Neg (NEG) Urine Cannabinoids Screen Pos (NEG) Urine Ethyl Alcohol Neg (NEG) Treponema pallidum Antibody Nonreactive (Nonreactive) Hepatitis A IgM Antibody Nonreactive (Nonreactive) Hepatitis B Surface Antigen Nonreactive (Nonreactive) Hepatitis B Core IgM Antibody Nonreactive (Nonreactive) Hepatitis C IgG Antibody Nonreactive (Nonreactive) HIV (1&2) Antibody Screen Nonreactive (Nonreactive) Test 04/23/20 07:22 White Blood Count 10.7 x10^3/uL (4.0-11.0) Red Blood Count 4.92 x10^6/uL (4.30-5.70) Hemoglobin 13.8 g/dL (13.0-17.5) Hematocrit 42.1 % (39.0-53.0) Mean Corpuscular Volume 86 fL (79-100) Mean Corpuscular Hemoglobin 28 pg (25-35) Mean Corpuscular Hemoglobin Concent 33 g/dL (31-37) Red Cell Distribution Width 14.5 % (11.5-14.5) Platelet Count 232 x10^3/uL (140-400) Neutrophils (%) (Auto) 72 % (31-73) Lymphocytes (%) (Auto) 19 % (24-48) Monocytes (%) (Auto) 8 % (0-9) Eosinophils (%) (Auto) 1 % (0-3) Basophils (%) (Auto) 1 % (0-3) Neutrophils # (Auto) 7.7 x10^3/uL (1.8-7.7) Lymphocytes # (Auto) 2.0 x10^3/uL (1.0-4.8) Monocytes # (Auto) 0.8 x10^3/uL (0.0-1.1) Eosinophils # (Auto) 0.1 x10^3/uL (0.0-0.7) Basophils # (Auto) 0.1 x10^3/uL (0.0-0.2) Sodium Level 143 mmol/L (136-145) Potassium Level 3.6 mmol/L (3.5-5.1) Chloride Level 107 mmol/L (98-107) Carbon Dioxide Level 25 mmol/L (21-32) Anion Gap 11 (6-14) Blood Urea Nitrogen 7 mg/dL (8-26) Creatinine 1.0 mg/dL (0.7-1.3) Estimated GFR (Cockcroft-Gault) 89.6 Glucose Level 88 mg/dL (70-99) Calcium Level 8.9 mg/dL (8.5-10.1) Phosphorus Level 3.5 mg/dL (2.6-4.7) Magnesium Level 2.2 mg/dL (1.8-2.4) C-Reactive Protein, Quantitative 8.2 mg/L (0-3.3) Allergies: Coded Allergies: No Known Drug Allergies (Unverified , 03/30/20) Medications: Current Medications Medications (Trade) Dose Ordered Sig/Gayatri Route PRN Reason Start Time Stop Time Status Last Admin Dose Admin Ondansetron HCl (Zofran) 8 mg 1X ONCE IVP 04/22/20 13:45 04/22/20 13:46 DC 04/22/20 13:39 Metronidazole 100 ml @ 100 mls/hr 1X ONCE IV 04/22/20 14:00 04/22/20 14:59 DC 04/22/20 13:58 Morphine Sulfate (Morphine Sulfate) 4 mg 1X ONCE IV 04/22/20 14:00 04/22/20 14:01 DC 04/22/20 13:56 Piperacillin Sod/ Tazobactam Sod 3.375 gm/Sodium Chloride 50 ml @ 100 mls/hr 1X ONCE IV 04/22/20 14:45 04/22/20 15:14 DC 04/22/20 14:51 Sodium Chloride 1,000 ml @ 1,000 mls/hr 1X ONCE IV 04/22/20 14:45 04/22/20 15:44 DC 04/22/20 14:50 Iohexol (Omnipaque 300 Mg/ml) 75 ml 1X ONCE IV 04/22/20 15:00 04/22/20 15:01 DC 04/22/20 15:00 Metoclopramide HCl (Reglan Vial) 10 mg 1X ONCE IVP 04/22/20 15:00 04/22/20 15:01 DC 04/22/20 14:54 Morphine Sulfate (Morphine Sulfate) 4 mg 1X ONCE IV 04/22/20 16:15 04/22/20 16:16 DC 04/22/20 16:11 Ondansetron HCl (Zofran) 4 mg 1X ONCE IVP 04/22/20 16:15 04/22/20 16:16 DC 04/22/20 16:12 Fentanyl Citrate (Fentanyl 2ml Vial) 50 mcg PRN Q1HR PRN IV PAIN 04/22/20 16:45 04/23/20 16:44 04/22/20 17:31 Sodium Chloride 1,000 ml @ 100 mls/hr Q10H IV 04/22/20 16:39 04/22/20 21:10 DC 04/22/20 17:31 Sodium Chloride 1,000 ml @ 100 mls/hr Q10H IV 04/22/20 18:00 04/23/20 03:01 Pantoprazole Sodium (PROTONIX VIAL for IV PUSH) 40 mg DAILYAC IVP 04/23/20 07:30 04/23/20 09:49 Hydromorphone HCl (Dilaudid) 0.2 mg PRN Q4HRS PRN IVP MODERATE PAIN 4-6 04/22/20 18:00 04/22/20 18:57 Hydromorphone HCl (Dilaudid) 0.4 mg PRN Q4HRS PRN IVP SEVERE PAIN 7-10 04/22/20 18:00 04/23/20 09:06 Prochlorperazine Edisylate (Compazine) 10 mg PRN Q6HRS PRN IV NAUSEA/VOMITING 04/22/20 18:00 04/23/20 09:07 Ceftriaxone Sodium (Rocephin) 1 gm Q24H IVP 04/22/20 19:00 04/22/20 19:02 Metronidazole 100 ml @ 100 mls/hr 1X ONCE IV 04/22/20 18:30 04/22/20 19:29 DC 04/22/20 19:10 Metronidazole 100 ml @ 100 mls/hr Q8HRS IV 04/23/20 08:30 04/23/20 08:54 Imaging: Imaging: CT A/P 04/22/20 IMPRESSION: 1. No acute abnormality of abdomen or pelvis. Normal appendix. 2. Diverticulosis with no evidence of acute diverticulitis. 3. Mild fatty infiltration of the liver. PE: GEN: NAD HEENT: Atraumatic, PERRL LUNGS: CTAB HEART: RRR ABD: NABS, S/ND, LLQ pain EXTREMITY: No edema SKIN: No rashes, no jaundice NEURO/PSYCH: A & O 3 A/P: A/P: Episodic vomiting (though not each time), LLQ pain, diarrhea x 6 months Recent diverticulitis - noted on CTs 03/30 and 04/04; discharged 04/06 Mildly elevated AST and ALT - viral Hep negative CRC screen, FH colon cancer Hepatic steatosis +marijuana -- Would really like some water or juice - gave okay to nurse. ?normal CT this time, on IV atbx Agree w/ PPI. Will return w/ Dr. Rosario. LITA KEVIN Apr 23, 2020 13:06
--- NOTE | 2020-04-23 13:49 | NUR ---
SS following for discharge planning. SS reviewed pt chart and discussed with pt RN. Pt is from home and is currently on room air. Self pay. Pt on IV Rocephin. PT/OT ordered and no needs at this time. Discharge plan is to home when medically ready. SS will continue to follow for discharge planning.
[2020-04-23 15:00] VITALS: BP 119/61
--- NOTE | 2020-04-23 18:12 | NUR ---
Have reviewed documentation completed by customer marketing intern and made changes as needed/appropriate
[2020-04-23] MEDS: cefTRIAXone IV Push 1 GM VIAL. IVP SCH (19:01)
[2020-04-23 19:50] VITALS: BP 127/74
[2020-04-23 23:30] VITALS: BP 103/55
[2020-04-24 03:35] VITALS: BP 119/80
[2020-04-24] MEDS: HYDROmorphone 2 MG/ML VIAL IVP PRN (03:43)
[2020-04-24 05:28] LABS: BASO # 0.1 x10^3/uL (0.0-0.2); BASO % 1 % (0-3); EOS # 0.2 x10^3/uL (0.0-0.7); EOS % 2 % (0-3); HEMATOCRIT 39.3 % (39.0-53.0); HEMOGLOBIN 13.2 g/dL (13.0-17.5); LYMPH # 2.1 x10^3/uL (1.0-4.8); LYMPH % 25 % (24-48); MEAN CORPUSCULAR HEMOGLOBIN 29 pg (25-35); MEAN CORPUSCULAR HGB CONC 34 g/dL (31-37); MEAN CORPUSCULAR VOLUME 85 fL (79-100); MONO # 0.6 x10^3/uL (0.0-1.1); MONO % 7 % (0-9); NEUT # 5.3 x10^3/uL (1.8-7.7); NEUT % 65 % (31-73); PLATELET COUNT 184 x10^3/uL (140-400); RED BLOOD COUNT 4.61 x10^6/uL (4.30-5.70); RED CELL DISTRIBUTION WIDTH 14.7 % (11.5-14.5); WHITE BLOOD COUNT 8.2 x10^3/uL (4.0-11.0)
[2020-04-24 05:49] LABS: CALCIUM 8.1 mg/dL (8.5-10.1); CREATININE 0.8 mg/dL (0.7-1.3); POTASSIUM 3.6 mmol/L (3.5-5.1)
[2020-04-24 07:00] VITALS: BP 140/59
[2020-04-24] MEDS: PROCHLORPERAZINE 10 MG/2 ML VIAL. IV PRN (08:13)
[2020-04-24] MEDS: PANTOPRAZOLE IV PUSH 40 MG VIAL. IVP SCH (08:13)
[2020-04-24 11:00] VITALS: BP 135/62
--- NOTE | 2020-04-24 11:29 | PDOC ---
Date of Service: DATE: 04/24/20 TIME: 11:27 Subjective: Subjective: Feels better - tolerated clears and advanced to full liquids. No n/v. LLQ pain is better. No diarrhea. Objective: Objective: Nurse says discharging today. Vital Signs: Vital Signs Date Time Temp Pulse Resp B/P (MAP) Pulse Ox O2 Delivery O2 Flow Rate FiO2 04/24/20 08:00 Room Air 2.0 04/24/20 07:00 98.0 93 16 140/59 (86) 93 98.0 Labs: Laboratory Tests Test 04/24/20 04:30 White Blood Count 8.2 x10^3/uL Red Blood Count 4.61 x10^6/uL Hemoglobin 13.2 g/dL Hematocrit 39.3 % Mean Corpuscular Volume 85 fL Mean Corpuscular Hemoglobin 29 pg Mean Corpuscular Hemoglobin Concent 34 g/dL Red Cell Distribution Width 14.7 % Platelet Count 184 x10^3/uL Neutrophils (%) (Auto) 65 % Lymphocytes (%) (Auto) 25 % Monocytes (%) (Auto) 7 % Eosinophils (%) (Auto) 2 % Basophils (%) (Auto) 1 % Neutrophils # (Auto) 5.3 x10^3/uL Lymphocytes # (Auto) 2.1 x10^3/uL Monocytes # (Auto) 0.6 x10^3/uL Eosinophils # (Auto) 0.2 x10^3/uL Basophils # (Auto) 0.1 x10^3/uL Sodium Level 142 mmol/L Potassium Level 3.6 mmol/L Chloride Level 107 mmol/L Carbon Dioxide Level 23 mmol/L Anion Gap 12 Blood Urea Nitrogen 5 mg/dL Creatinine 0.8 mg/dL Estimated GFR (Cockcroft-Gault) 116.0 Glucose Level 79 mg/dL Calcium Level 8.1 mg/dL PE: GEN: NAD LUNGS: CTAB HEART: RRR ABD: barely any tenderness LLQ NEURO/PSYCH: A & O 3 A/P: Episodic vomiting (though not each time), LLQ pain, diarrhea x 6 months +marijuana -- Plans to DC noted. Stop marijuana. Doesn't need antibiotics. Justicifation of Admission Dx: Justifications for Admission: Justification of Admission Dx: Yes LITA KEVIN Apr 24, 2020 11:29
[2020-04-24] MEDS ORDERED: PANT40TA77 PO (11:34)
[2020-04-24] MEDS ORDERED: PROC10TA57 PO (11:34)
--- NOTE | 2020-04-24 11:55 | NUR ---
DISCHARGED PATIENT TO HOME. DISCHARGE INSTRUCTIONS GIVEN. PIV REMOVED. ESCORTED PATIENT OFF UNIT PER WHEELCHAIR INTO A PRIVATE VEHICLE.
--- NOTE | 2020-04-24 11:55 | PDOC ---
[facility] [facility] PROGRESS NOTE Date of Service DOS: DATE: 04/24/20 TIME: 11:52 Chief Complaint Chief Complaint Acute abdominal pain with intractable nausea vomiting History of diverticulitis History of cannabinoid use Transaminitis consistent with hepatic steatosis History of Present Illness History of Present Illness 04/24/2020 Pt seen and examined ROGER RN ROGER Case management 04/23: Patient is seen and evaluated bedside. Charts and labs reviewed. Patient with history diverticulitis and clinical signs of diverticulitis, rece ntly discharged from our service earlier this month. Radiographic evidence of diverticulosis, without diverticulitis seen on CT abdomen/pelvis. Still complains of left lower quadrant abdominal pain. Had episode of vomiting overnight, denies further episodes of diarrhea. Will attempt clear liquid diet. Consult GI for further recommendations. Vitals/I&O Vitals/I&O: Vital Signs Date Time Temp Pulse Resp B/P (MAP) Pulse Ox O2 Delivery O2 Flow Rate FiO2 04/24/20 08:00 Room Air 2.0 04/24/20 07:00 98.0 93 16 140/59 (86) 93 98.0 I & O 04/23/20 04/23/20 04/24/20 15:00 23:00 07:00 Intake Total 100 ml 1450 ml Balance 100 ml 1450 ml Physical Exam General: Alert, Cooperative Heart: Regular rate Lungs: Clear Abdomen: Other (Left lower quadrant tenderness) Extremities: No clubbing Skin: No rashes Labs Labs: Laboratory Tests Test 04/24/20 04:30 White Blood Count 8.2 x10^3/uL (4.0-11.0) Red Blood Count 4.61 x10^6/uL (4.30-5.70) Hemoglobin 13.2 g/dL (13.0-17.5) Hematocrit 39.3 % (39.0-53.0) Mean Corpuscular Volume 85 fL (79-100) Mean Corpuscular Hemoglobin 29 pg (25-35) Mean Corpuscular Hemoglobin Concent 34 g/dL (31-37) Red Cell Distribution Width 14.7 % (11.5-14.5) Platelet Count 184 x10^3/uL (140-400) Neutrophils (%) (Auto) 65 % (31-73) Lymphocytes (%) (Auto) 25 % (24-48) Monocytes (%) (Auto) 7 % (0-9) Eosinophils (%) (Auto) 2 % (0-3) Basophils (%) (Auto) 1 % (0-3) Neutrophils # (Auto) 5.3 x10^3/uL (1.8-7.7) Lymphocytes # (Auto) 2.1 x10^3/uL (1.0-4.8) Monocytes # (Auto) 0.6 x10^3/uL (0.0-1.1) Eosinophils # (Auto) 0.2 x10^3/uL (0.0-0.7) Basophils # (Auto) 0.1 x10^3/uL (0.0-0.2) Sodium Level 142 mmol/L (136-145) Potassium Level 3.6 mmol/L (3.5-5.1) Chloride Level 107 mmol/L (98-107) Carbon Dioxide Level 23 mmol/L (21-32) Anion Gap 12 (6-14) Blood Urea Nitrogen 5 mg/dL (8-26) Creatinine 0.8 mg/dL (0.7-1.3) Estimated GFR (Cockcroft-Gault) 116.0 Glucose Level 79 mg/dL (70-99) Calcium Level 8.1 mg/dL (8.5-10.1) Review of Systems Review of Systems: No signs of digital clubbing, cyanosis, or SOB noted. Assessment and Plan Assessmemt and Plan Problems Medical Problems: (1) Abdominal pain Status: Acute (2) Diarrhea Status: Acute (3) Intractable nausea and vomiting Status: Acute Acute abdominal pain with intractable nausea vomiting History of diverticulitis History of cannabinoid use Transaminitis consistent with hepatic steatosis Plan: Discharge today Home meds Full code Comment Review of Relevant I have reviewed the following items lee (where applicable) has been applied. Justifications for Admission Abdominal Pain Indications Is NPO status required?: Yes Justification for admission: Patient may require to be NPO for greater 24hours making it medically necessary to manage patient as inpatient. Other Justification Diverticulitis KAREN SORENSON III DO Apr 24, 2020 11:55
--- NOTE | 2020-04-24 12:12 | NUR ---
SS following up with discharge planning. SS reviewed pt chart and discussed with pt RN. Pt is currently on room air. Self pay. No PT/OT needs. Discharge order on the chart for home with self care.
--- NOTE | 2020-04-24 14:26 | DS ---
DATE OF DISCHARGE: 04/24/2020 ADMISSION DIAGNOSES: Nausea, vomiting, abdominal pain. DISCHARGE DIAGNOSES: Resolving nausea, vomiting, diarrhea; resolving abdominal pain; history of marijuana use. CONSULTATIONS: GI. PROCEDURES: None. HOSPITAL COURSE: The patient is a pleasant middle-aged male, who presented with nausea, vomiting, diarrhea. 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 Consulted GI. His symptoms have resolved by this day. Today, I saw him and examined him, he is doing well. We plan to discharge. DISPOSITION: Home. ACTIVITY: As tolerated. DIET: Low sodium. MEDICATIONS: Please see the MRAD. TOTAL TIME: 32 minutes. KAREN SORENSON DO DR: MIREYA/angela JOB#: [id number] / [id number]
== END 2020-04-24 11:55 | disposition home or self-care (01) | DRG 392 ==
LOC: ER 13:07 → ED HOLD 16:35 → 2 SOUTH 17:41
PROVIDERS: ADMIT Internal Medicine; ATTEND Internal Medicine
DX: R10.9 Unspecified abdominal pain (principal); R11.2 Nausea with vomiting, unspecified; F32.9 Major depressive disorder, single episode, unspecified; K76.0 Fatty (change of) liver, not elsewhere classified; Z80.0 Family history of malignant neoplasm of digestive organs; Z83.3 Family history of diabetes mellitus; R19.7 Diarrhea, unspecified
CPT/HCPCS: 36415; 74177; 80048; 80053; 80307; 81001; 83690; 83735; 84100; 85007; 85025; 86140; 86592; 86703; 86705; 86709; 86803; 87340; C9113; J0696; J0780; J1170; J2270; J2405; J2543; J2765; J3010; J3490; J7030; Q9967; G0378

== ENCOUNTER 2020-05-30 12:41 | Emergency (ER) | payer SELFPAY ==
[~2020-05-30] VITALS: Ht 182.9 cm; Wt 104.0 kg
[~2020-05-30 12:41] MED LIST changes: +PANT40TA77 PO; +PROC10TA57 PO
[2020-05-30 14:40] LABS: CALCIUM 10.4 mg/dL (8.5-10.1); CREATININE 1.3 mg/dL (0.7-1.3); GFR 66.2
[2020-05-30 14:44] LABS: ALBUMIN 4.3 g/dL (3.4-5.0); ALBUMIN/GLOBULIN RATIO 1.1 (1.0-1.7); TOTAL BILIRUBIN 0.4 mg/dL (0.2-1.0); TOTAL PROTEIN 8.2 g/dL (6.4-8.2)
[2020-05-30] MEDS ORDERED: PANTOPRAZOLE IV PUSH 40 MG VIAL. IVP ONE (15:00)
[2020-05-30] MEDS ORDERED: METOCLOPRAMIDE HCL 10 MG/2 ML VIAL. IVP ONE ×2 (15:00→16:15)
[2020-05-30] MEDS ORDERED: IV NORMAL SALINE 1000ML BAG 1,000 ML IV ONE ×2 (15:00→16:45)
[2020-05-30] MEDS ORDERED: HALOPERIDOL LACTATE 5 MG/ML VIAL. IVP ONE (15:00)
[2020-05-30 15:17] VITALS: BP 136/72
[2020-05-30 15:59] LABS: BASO % 0 % (0-3); EOS % 0 % (0-3); HEMATOCRIT 42.6 % (39.0-53.0); HEMOGLOBIN 14.6 g/dL (13.0-17.5); LYMPH # 0.6 x10^3/uL (1.0-4.8); LYMPH % 5 % (24-48); MEAN CORPUSCULAR HEMOGLOBIN 29 pg (25-35); MEAN CORPUSCULAR HGB CONC 34 g/dL (31-37); MEAN CORPUSCULAR VOLUME 84 fL (79-100); MONO # 0.7 x10^3/uL (0.0-1.1); MONO % 5 % (0-9); NEUT # 12.3 x10^3/uL (1.8-7.7); NEUT % 90 % (31-73); PLATELET COUNT 208 x10^3/uL (140-400); RED BLOOD COUNT 5.05 x10^6/uL (4.30-5.70); RED CELL DISTRIBUTION WIDTH 14.2 % (11.5-14.5); WHITE BLOOD COUNT 13.8 x10^3/uL (4.0-11.0)
[2020-05-30 16:23] LABS: % BANDS 2 % (0-9); % LYMPHS 5 % (24-48); % MONOS 1 % (0-10); % SEGS 92 % (35-66); PLT ESTIMATE ADEQUATE (ADEQUATE)
[2020-05-30 16:24] LABS: TOXIC GRANULATION SLIGHT
--- NOTE | 2020-05-30 16:49 | ED.ADGEN ---
Past Medical History Past Medical History: Diverticulitis Past Surgical History: No Surgical History Smoking Status: Never Smoker Alcohol Use: None General Adult EDM: Chief Complaint: ABDOMINAL PAIN HPI: HPI: Patient is 25-year-old male who presents to the emergency room with diffuse abdominal pain worse in the epigastric region, nausea, vomiting. Patient has presented to the emergency room several times for this over the last 2 months. Reportedly he has had diverticulitis but the last 2 times he has had normal CT scans. Patient states that this started this morning and he has had multiple episodes of vomiting. He did have some dark vomit prior to arrival. He is also had some mild diarrhea. He is requesting the regimen that he typically gets when he comes into the hospital because as the only thing that works for him and he does not want any Zofran. He also is requesting something for pain. Review of Systems: Review of Systems: Complete ROS is negative unless otherwise documented in HPI Current Medications: Current Medications Medications (Trade) Dose Ordered Sig/Gayatri Start Time Stop Time Status Last Admin Dose Admin Haloperidol Lactate (Haldol Inj) 5 mg 1X ONCE 05/30/20 15:00 05/30/20 15:01 DC 05/30/20 15:09 5 MG Metoclopramide HCl (Reglan Vial) 10 mg 1X ONCE 05/30/20 16:15 05/30/20 16:16 DC 05/30/20 16:21 10 MG Pantoprazole Sodium (PROTONIX VIAL for IV PUSH) 40 mg 1X ONCE 05/30/20 15:00 05/30/20 15:01 DC 05/30/20 15:09 40 MG Sodium Chloride 1,000 ml @ 1,000 mls/hr 1X ONCE 05/30/20 16:45 05/30/20 17:44 Allergies: Allergies: Allergies Coded Allergies Type Severity Reaction Last Updated Verified No Known Drug Allergies 03/30/20 No Physical Exam: PE: General: Awake, alert, NAD. Well Nourished, well hydrated. Cooperative HEENT: Atraumatic, EOMI, PERRL, airway patent, moist oral mucosa Neck: Supple, trachea midline Respiratory: CTA bilaterally, normal effort, no wheezing/crackles CV: RRR, no murmur, cap refill <2 GI: Soft, nondistended, diffusely tender, no masses MSK: No obvious deformities Skin: Warm, dry, intact Neuro: A&O x3, speech NL, sensory and motor grossly intact, no focal deficits Psych: Normal affect, normal mood, not suicidal or homicidal Current Patient Data: Labs: Laboratory Tests Test 05/30/20 14:19 05/30/20 14:50 05/30/20 17:05 Sodium Level 138 mmol/L (136-145) Potassium Level 4.0 mmol/L (3.5-5.1) Chloride Level 100 mmol/L (98-107) Carbon Dioxide Level 19 mmol/L (21-32) L Anion Gap 19 (6-14) H Blood Urea Nitrogen 11 mg/dL (8-26) Creatinine 1.3 mg/dL (0.7-1.3) Estimated GFR (Cockcroft-Gault) 66.2 BUN/Creatinine Ratio 8 (6-20) Glucose Level 149 mg/dL (70-99) H Calcium Level 10.4 mg/dL (8.5-10.1) H Total Bilirubin 0.4 mg/dL (0.2-1.0) Aspartate Amino Transferase (AST) 43 U/L (15-37) H Alanine Aminotransferase (ALT) 90 U/L (16-63) H Alkaline Phosphatase 55 U/L (46-116) Total Protein 8.2 g/dL (6.4-8.2) Albumin 4.3 g/dL (3.4-5.0) Albumin/Globulin Ratio 1.1 (1.0-1.7) Lipase 95 U/L (73-393) White Blood Count 13.8 x10^3/uL (4.0-11.0) H Red Blood Count 5.05 x10^6/uL (4.30-5.70) Hemoglobin 14.6 g/dL (13.0-17.5) Hematocrit 42.6 % (39.0-53.0) Mean Corpuscular Volume 84 fL (79-100) Mean Corpuscular Hemoglobin 29 pg (25-35) Mean Corpuscular Hemoglobin Concent 34 g/dL (31-37) Red Cell Distribution Width 14.2 % (11.5-14.5) Platelet Count 208 x10^3/uL (140-400) Neutrophils (%) (Auto) 90 % (31-73) H Lymphocytes (%) (Auto) 5 % (24-48) L Monocytes (%) (Auto) 5 % (0-9) Eosinophils (%) (Auto) 0 % (0-3) Basophils (%) (Auto) 0 % (0-3) Neutrophils # (Auto) 12.3 x10^3/uL (1.8-7.7) H Lymphocytes # (Auto) 0.6 x10^3/uL (1.0-4.8) L Monocytes # (Auto) 0.7 x10^3/uL (0.0-1.1) Eosinophils # (Auto) 0.0 x10^3/uL (0.0-0.7) Basophils # (Auto) 0.0 x10^3/uL (0.0-0.2) Segmented Neutrophils % 92 % (35-66) H Band Neutrophils % 2 % (0-9) Lymphocytes % 5 % (24-48) L Monocytes % 1 % (0-10) Toxic Granulation Slight Platelet Estimate Adequate (ADEQUATE) Urine Collection Type Void Urine Color Yellow Urine Clarity Clear Urine pH 7.5 (<5.0-8.0) Urine Specific Wilson 1.025 (1.000-1.030) Urine Protein Negative mg/dL (NEG-TRACE) Urine Glucose (UA) Negative mg/dL (NEG) Urine Ketones (Stick) Trace mg/dL (NEG) Urine Blood Negative (NEG) Urine Nitrite Negative (NEG) Urine Bilirubin Negative (NEG) Urine Urobilinogen Dipstick 0.2 mg/dL (0.2 mg/dL) Urine Leukocyte Esterase Negative (NEG) Urine RBC 0 /HPF (0-2) Urine WBC 0 /HPF (0-4) Urine Squamous Epithelial Cells Occ /LPF Urine Bacteria 0 /HPF (0-FEW) Urine Opiates Screen Neg (NEG) Urine Methadone Screen Neg (NEG) Urine Barbiturates Neg (NEG) Urine Phencyclidine Screen Neg (NEG) Urine Amphetamine/Methamphetamine Neg (NEG) Urine Benzodiazepines Screen Neg (NEG) Urine Cocaine Screen Neg (NEG) Urine Cannabinoids Screen Pos (NEG) Urine Ethyl Alcohol Neg (NEG) Laboratory Tests 05/30/20 14:50 Laboratory Tests 05/30/20 14:19 Vital Signs: Vital Signs Date Time Temp Pulse Resp B/P (MAP) Pulse Ox O2 Delivery O2 Flow Rate FiO2 05/30/20 13:48 99.1 65 16 145/75 (98) 100 Room Air 99.1 EKG: EKG: [] Heart Score: Risk Factors: Risk Factors: DM, Current or recent (<one month) smoker, HTN, HLP, family history of CAD, obesity. Risk Scores: Score 0 - 3: 2.5% MACE over next 6 weeks - Discharge Home Score 4 - 6: 20.3% MACE over next 6 weeks - Admit for Clinical Observation Score 7 - 10: 72.7% MACE over next 6 weeks - Early Invasive Strategies Radiology/Procedures: Radiology/Procedures: [] Course & Med Decision Making: Course & Med Decision Making Pertinent Labs and Imaging studies reviewed. (See chart for details) Patient is 25-year-old male who presents to the emergency room complaining of diffuse abdominal pain with nausea, vomiting, diarrhea. He has been seen here for similar symptoms several times in the past. Abdominal lab work was ordered. Overall it appears stable from prior visits. Patient has had 3 CT scans in the last 2 months. I do not feel that a repeat CT scan for the same symptoms he has had the last [address] scans is appropriate at this time. I did treat the patient with Haldol, Reglan, Protonix. Hemoglobin is normal and there is no further signs of blood in vomit. Patient was given fluids as well for dehydration. Patient states that he quit using marijuana 6 weeks ago. Drug screen shows that he is positive for cannabinoids which makes this likely untrue. At this time there is concern that this is due to cyclic vomiting syndrome. I reiterated to the patient that it is very important that he does not smoke marijuana as his symptoms will continue to occur. We discussed that he needs to keep his follow-up appointment with Dr. Rosario as planned. We discussed that if he develops fever, worsening pain, or he has other concerns he should return to the emergency room for repeat evaluation. Patient's test results and vitals while in the ED were fully [facility] Patient is stable and at this time does not need admission to the hospital. We have discussed strict return precautions and the importance of following up with their Primary Care Physician. Patient stated understanding and was given an opportunity to ask any questions. Patient is in agreement with plan. Tim Disclaimer: Tim Disclaimer: This electronic medical record was generated, in whole or in part, using a voice recognition dictation system. Departure Departure Impression: Primary Impression: Intractable nausea and vomiting Additional Impression: Marijuana use Disposition: 01 DC HOME SELF CARE/HOMELESS Condition: STABLE Referrals: NO PCP (PCP) Patient Instructions: Cyclic Vomiting Syndrome Problem Qualifiers ELAINE TAM MD May 30, 2020 16:49
[2020-05-30 17:14] LABS: BILIRUBIN,URINE NEGATIVE (NEG); CLARITY,URINE CLEAR; COLOR,URINE YELLOW; NITRITE,URINE NEGATIVE (NEG); PH,URINE 7.5 (<5.0-8.0); PROTEIN,URINE NEGATIVE (NEG-TRACE); UROBILINOGEN,URINE 0.2 mg/dL (0.2 mg/dL)
[2020-05-30 17:23] LABS: BARBITURATES NEG (NEG); BENZODIAZEPINES NEG (NEG); CANNABINOIDS POS (NEG); COCAINE NEG (NEG); METHADONE NEG (NEG); OPIATES NEG (NEG); PHENCYCLIDINE NEG (NEG)
[2020-05-30 17:25] LABS: AMPHETAMINE/METHAMPHETAMINE NEG (NEG)
[2020-05-30 17:31] LABS: BACTERIA,URINE 0 /HPF (0-FEW); RBC,URINE 0 /HPF (0-2); WBC,URINE 0 /HPF (0-4)
[2020-05-30] MEDS ORDERED: PROC10TA57 PO (17:57)
== END 2020-05-30 17:56 | disposition home or self-care (01) ==
LOC: ER 12:41
DX: R11.2 Nausea with vomiting, unspecified (principal); R19.7 Diarrhea, unspecified; R10.84 Generalized abdominal pain; F12.90 Cannabis use, unspecified, uncomplicated
CPT/HCPCS: 36415; 80053; 80307; 81001; 83690; 85007; 85025; 96361; 96374; 96375; 96376; 99284; C9113; J1630; J2765; J7030

== ENCOUNTER 2020-06-29 12:49 | Emergency (ER) | payer SELFPAY ==
[~2020-06-29] VITALS: Ht 182.9 cm; Wt 104.5 kg
[2020-06-29] MEDS ORDERED: METOCLOPRAMIDE HCL 10 MG/2 ML VIAL. IVP ONE ×2 (13:15→16:15)
[2020-06-29] MEDS ORDERED: IV NORMAL SALINE 1000ML BAG 1,000 ML IV ONE (13:15)
[2020-06-29] MEDS ORDERED: HALOPERIDOL LACTATE 5 MG/ML VIAL. IVP ONE (13:15)
[2020-06-29] MEDS ORDERED: FAMOTIDINE 20 MG/2 ML VIAL IVP ONE (13:15)
[2020-06-29 13:49] LABS: BASO % 0 % (0-3); EOS % 0 % (0-3); HEMATOCRIT 47.2 % (39.0-53.0); HEMOGLOBIN 15.9 g/dL (13.0-17.5); LYMPH # 1.3 x10^3/uL (1.0-4.8); LYMPH % 9 % (24-48); MEAN CORPUSCULAR HEMOGLOBIN 29 pg (25-35); MEAN CORPUSCULAR HGB CONC 34 g/dL (31-37); MEAN CORPUSCULAR VOLUME 85 fL (79-100); MONO # 0.6 x10^3/uL (0.0-1.1); MONO % 4 % (0-9); NEUT # 12.5 x10^3/uL (1.8-7.7); NEUT % 86 % (31-73); PLATELET COUNT 283 x10^3/uL (140-400); RED BLOOD COUNT 5.56 x10^6/uL (4.30-5.70); RED CELL DISTRIBUTION WIDTH 14.1 % (11.5-14.5); WHITE BLOOD COUNT 14.5 x10^3/uL (4.0-11.0)
[2020-06-29 13:53] LABS: CALCIUM 9.8 mg/dL (8.5-10.1); CREATININE 1.1 mg/dL (0.7-1.3); GFR 80.3; POTASSIUM 3.7 mmol/L (3.5-5.1)
[2020-06-29 13:59] LABS: ALBUMIN 4.5 g/dL (3.4-5.0); ALBUMIN/GLOBULIN RATIO 1.2 (1.0-1.7); MAGNESIUM 1.6 mg/dL (1.8-2.4); TOTAL BILIRUBIN 0.5 mg/dL (0.2-1.0); TOTAL PROTEIN 8.2 g/dL (6.4-8.2)
[2020-06-29 14:14] LABS: % BANDS 4 % (0-9); % LYMPHS 9 % (24-48); % MONOS 6 % (0-10); % SEGS 81 % (35-66); PLT ESTIMATE ADEQUATE (ADEQUATE)
[2020-06-29] MEDS ORDERED: IOHEXOL 300 MG/ML 100ML VIAL. IV ONE (15:30)
--- NOTE | 2020-06-29 15:32 | PHYS DOC ---
Past Medical History Past Medical History: Diverticulitis Past Surgical History: No Surgical History Smoking Status: Never Smoker Alcohol Use: None General Adult EDM: Chief Complaint: NAUSEA/VOMITING/DIARRHA HPI: HPI: Patient is a 25 year old male with history of diverticulitis who presents the ED today complaining of nausea, vomiting, diarrhea, 7 out of 10 epigastric abdominal pain, symptoms of been going on intermittently since March 2020. Patient denies any fever. Denies any hematemesis or melena. He states he has been seen in the ED multiple times before for the same complaint and was told he has diverticulitis. He admits to marijuana use but states he has not used it recently Review of Systems: Review of Systems: Constitutional: Denies fever or chills. [] Eyes: Denies change in visual acuity. [] HENT: Denies nasal congestion or sore throat. [] Respiratory: Denies cough or shortness of breath. [] Cardiovascular: Denies chest pain or edema. [] GI: Reports epigastric abdominal pain, nausea and vomiting and diarrhea, denies any hematemesis or melena : Denies dysuria. [] Musculoskeletal: Denies back pain or joint pain. [] Integument: Denies rash. [] Neurologic: Denies headache, focal weakness or sensory changes. [] Psychiatric: Denies depression or anxiety. [] Heart Score: Risk Factors: Risk Factors: DM, Current or recent (<one month) smoker, HTN, HLP, family history of CAD, obesity. Risk Scores: Score 0 - 3: 2.5% MACE over next 6 weeks - Discharge Home Score 4 - 6: 20.3% MACE over next 6 weeks - Admit for Clinical Observation Score 7 - 10: 72.7% MACE over next 6 weeks - Early Invasive Strategies Current Medications: Current Medications Medications (Trade) Dose Ordered Sig/Gayatri Start Time Stop Time Status Last Admin Dose Admin Famotidine (Pepcid Vial) 20 mg 1X ONCE 06/29/20 13:15 06/29/20 13:16 DC 06/29/20 13:47 20 MG Haloperidol Lactate (Haldol Inj) 5 mg 1X ONCE 06/29/20 13:15 06/29/20 13:16 DC 06/29/20 13:47 5 MG Iohexol (Omnipaque 300 Mg/ml) 75 ml 1X ONCE 06/29/20 15:30 06/29/20 15:31 UNV Metoclopramide HCl (Reglan Vial) 10 mg 1X ONCE 06/29/20 13:15 06/29/20 13:16 DC 06/29/20 13:47 10 MG Sodium Chloride 1,000 ml @ 1,000 mls/hr 1X ONCE 06/29/20 13:15 06/29/20 14:14 DC 06/29/20 13:48 1,000 MLS/HR Allergies: Allergies: Allergies Coded Allergies Type Severity Reaction Last Updated Verified No Known Drug Allergies 03/30/20 No Physical Exam: PE: Constitutional: Well developed, well nourished, no acute distress, non-toxic ap pearance. [] HENT: Normocephalic, atraumatic, bilateral external ears normal, oropharynx moist, no oral exudates, nose normal. [] Eyes: PERRLA, EOMI, conjunctiva normal, no discharge. [] Neck: Normal range of motion, no tenderness, supple, no stridor. [] Cardiovascular:Heart rate regular rhythm, no murmur [] Lungs & Thorax: Bilateral breath sounds clear to auscultation [] Abdomen: Bowel sounds normal, soft, mild epigastric tenderness, no masses, no pulsatile masses. [] Skin: Warm, dry, no erythema, no rash. [] Back: No tenderness, no CVA tenderness. [] Extremities: No tenderness, no cyanosis, no clubbing, ROM intact, no edema. [] Neurologic: Alert and oriented X 3, normal motor function, normal sensory function, no focal deficits noted. [] Psychologic: Affect normal, judgement normal, mood normal. [] Current Patient Data: Labs: Laboratory Tests Test 06/29/20 13:20 White Blood Count 14.5 x10^3/uL (4.0-11.0) H Red Blood Count 5.56 x10^6/uL (4.30-5.70) Hemoglobin 15.9 g/dL (13.0-17.5) Hematocrit 47.2 % (39.0-53.0) Mean Corpuscular Volume 85 fL (79-100) Mean Corpuscular Hemoglobin 29 pg (25-35) Mean Corpuscular Hemoglobin Concent 34 g/dL (31-37) Red Cell Distribution Width 14.1 % (11.5-14.5) Platelet Count 283 x10^3/uL (140-400) Neutrophils (%) (Auto) 86 % (31-73) H Lymphocytes (%) (Auto) 9 % (24-48) L Monocytes (%) (Auto) 4 % (0-9) Eosinophils (%) (Auto) 0 % (0-3) Basophils (%) (Auto) 0 % (0-3) Neutrophils # (Auto) 12.5 x10^3/uL (1.8-7.7) H Lymphocytes # (Auto) 1.3 x10^3/uL (1.0-4.8) Monocytes # (Auto) 0.6 x10^3/uL (0.0-1.1) Eosinophils # (Auto) 0.0 x10^3/uL (0.0-0.7) Basophils # (Auto) 0.0 x10^3/uL (0.0-0.2) Segmented Neutrophils % 81 % (35-66) H Band Neutrophils % 4 % (0-9) Lymphocytes % 9 % (24-48) L Monocytes % 6 % (0-10) Platelet Estimate Adequate (ADEQUATE) Sodium Level 140 mmol/L (136-145) Potassium Level 3.7 mmol/L (3.5-5.1) Chloride Level 101 mmol/L (98-107) Carbon Dioxide Level 23 mmol/L (21-32) Anion Gap 16 (6-14) H Blood Urea Nitrogen 10 mg/dL (8-26) Creatinine 1.1 mg/dL (0.7-1.3) Estimated GFR (Cockcroft-Gault) 80.3 BUN/Creatinine Ratio 9 (6-20) Glucose Level 166 mg/dL (70-99) H Calcium Level 9.8 mg/dL (8.5-10.1) Magnesium Level 1.6 mg/dL (1.8-2.4) L Total Bilirubin 0.5 mg/dL (0.2-1.0) Aspartate Amino Transferase (AST) 48 U/L (15-37) H Alanine Aminotransferase (ALT) 96 U/L (16-63) H Alkaline Phosphatase 55 U/L (46-116) Total Protein 8.2 g/dL (6.4-8.2) Albumin 4.5 g/dL (3.4-5.0) Albumin/Globulin Ratio 1.2 (1.0-1.7) Lipase 348 U/L (73-393) Ethyl Alcohol Level < 10 mg/dL (0-10) Laboratory Tests 06/29/20 13:20 Laboratory Tests 06/29/20 13:20 Vital Signs: Vital Signs Date Time Temp Pulse Resp B/P (MAP) Pulse Ox O2 Delivery O2 Flow Rate FiO2 06/29/20 13:07 98.1 70 20 136/73 (94) 100 Room Air 98.1 EKG: EKG: [] Radiology/Procedures: Radiology/Procedures: []PROCEDURE: CT ABD PELV W/ IV CONTRST ONLY EXAM: Abdomen and pelvis CT with intravenous contrast. HISTORY: Pain. TECHNIQUE: Computed tomographic images of the abdomen and pelvis were obtained following the administration of intravenous contrast. Multiplanar reformatting was performed. *One or more of the following individualized dose reduction techniques were utilized for this examination: 1. Automated exposure control. 2. Adjustment of the mA and/or kV according to patient size. 3. Use of iterative reconstruction technique. COMPARISON: 05/01/2020. FINDINGS: Evaluation of the lower thorax demonstrates no infiltrate or pleural effusion. There is a tiny hiatal hernia. There is mild hepatomegaly and hepatic steatosis. No suspicious hepatic lesion is seen. The gallbladder, pancreas, stomach and adrenal glands are unremarkable. There are small splenules adjacent to an otherwise unremarkable spleen. The kidneys are unremarkable. There is no appendicitis. There is no bowel obstruction. There is distal colonic diverticulosis. There is no convincing diverticulitis. There is distal colonic wall thickening likely due to relative underdistention or the sequela of chronic inflammation. There is no pericolonic stranding to suggest acute colitis. The urinary bladder is unremarkable. The aorta is normal in caliber. There is no suspicious osseous lesion. IMPRESSION: 1. Colonic diverticulosis without evidence of diverticulitis. 2. Mild hepatomegaly and hepatic steatosis. Electronically signed by: Nakita Romero MD (06/29/2020 4:34 PM) [facility] DICTATED and SIGNED BY: NAKITA ROMERO MD DATE: 06/29/20 [id number] 0 Course & Med Decision Making: Course & Med Decision Making Pertinent Labs and Imaging studies reviewed. (See chart for details) This is a 35-year-old male patient with history of diverticulitis presenting to the ED today complaining of nausea, vomiting, diarrhea of the left epigastric pain intermittently since March 2020. CBC with a WBC of 14.5, CMP with AST of 48, ALT of 96, lipase is normal Urine drug screen positive for marijuana. Patient was advised to consider not using marijuana considering his symptoms are suspicious of cyclic vomiting from marijuana use. CT of the abdomen and pelvic was positive for diverticulosis otherwise no acute findings. Provided GI for follow-up. Dragon Disclaimer: Dragon Disclaimer: This electronic medical record was generated, in whole or in part, using a voice recognition dictation system. Departure Departure Impression: Primary Impression: Marijuana use Additional Impressions: Intractable nausea and vomiting Chronic diarrhea Transaminitis Diverticulosis Disposition: 01 [place] HOME SELF CARE/HOMELESS Condition: STABLE Referrals: NO PCP (PCP) MARIAM LOPEZ MD follow up in one week Patient Instructions: Diarrhea, [id number], Marijuana Abuse-Brief, Nausea and Vomiting, [id number] Additional Instructions: You were evaluated in the emergency room, your CAT scan of the abdomen and pelvic was negative for any acute findings. We highly recommend you consider not using marijuana, it tends to cause people a lot of nausea and vomiting. Please follow-up with a GI doctor provided. Scripts Promethazine Hcl (PROMETHAZINE HCL) 25 Mg Supp.rect 25 MG RC Q6H PRN for NAUSEA/VOMITING, #20 SUPP.RECT Prov: AGGIE IBRAHIM BOND ANALYST 06/29/20 AGGIE IBRAHIM BOND ANALYST Jun 29, 2020 15:32
[2020-06-29] MEDS ORDERED: CONTRAST GIVEN. MC PRN (15:45)
[2020-06-29] MEDS ORDERED: METOCLOPRAMIDE 10 MG TABLET. PO ONE (16:15)
--- NOTE | 2020-06-29 16:36 | RAD ---
EXAM: Abdomen and pelvis CT with intravenous contrast. HISTORY: Pain. TECHNIQUE: Computed tomographic images of the abdomen and pelvis were obtained following the administ ration of intravenous contrast. Multiplanar reformatting was performed. *One or more of the following individualized dose reduction techniques were utilized for this examina tion: 1. Automated exposure control. 2. Adjustment of the mA and/or kV according to patient size. 3. Use of iterative reconstruction technique. COMPARISON: 05/01/2020. FINDINGS: Evaluation of the lower thorax demonstrates no infiltrate or pleural effusion. There is a t iny hiatal hernia. There is mild hepatomegaly and hepatic steatosis. No suspicious hepatic lesion is seen. The gallbladder, pancreas, stomach and adrenal glands are unremarkable. There are small splenul es adjacent to an otherwise unremarkable spleen. The kidneys are unremarkable. There is no appendicit is. There is no bowel obstruction. There is distal colonic diverticulosis. There is no convincing div erticulitis. There is distal colonic wall thickening likely due to relative underdistention or the se quela of chronic inflammation. There is no pericolonic stranding to suggest acute colitis. The urinar y bladder is unremarkable. The aorta is normal in caliber. There is no suspicious osseous lesion. IMPRESSION: 1. Colonic diverticulosis without evidence of diverticulitis. 2. Mild hepatomegaly and hepatic steatosis. Electronically signed by: Nakita Romero MD (06/29/2020 4:34 PM) [facility]
[2020-06-29 16:54] LABS: BILIRUBIN,URINE NEGATIVE (NEG); CLARITY,URINE CLEAR; COLOR,URINE YELLOW; NITRITE,URINE NEGATIVE (NEG); PH,URINE 8.5 (<5.0-8.0); PROTEIN,URINE NEGATIVE (NEG-TRACE); UROBILINOGEN,URINE 0.2 mg/dL (0.2 mg/dL)
[2020-06-29 16:57] LABS: BACTERIA,URINE 0 /HPF (0-FEW); RBC,URINE 0 /HPF (0-2); WBC,URINE 0 /HPF (0-4)
[2020-06-29 17:05] LABS: BARBITURATES NEG (NEG); BENZODIAZEPINES NEG (NEG); CANNABINOIDS POS (NEG); COCAINE NEG (NEG); METHADONE NEG (NEG); OPIATES NEG (NEG); PHENCYCLIDINE NEG (NEG)
[2020-06-29 17:07] LABS: AMPHETAMINE/METHAMPHETAMINE NEG (NEG)
[2020-06-29] MEDS ORDERED: ONDANSETRON PF 4 MG/2 ML VIAL. IVP ONE (17:30)
[2020-06-29] MEDS ORDERED: PROMETHAZINE 25 MG SUPP.RECT. PR ONE (17:30)
[2020-06-29] MEDS ORDERED: PROM25SU33 RC (17:51)
[2020-06-29 18:24] VITALS: BP 146/83
== END 2020-06-29 18:25 | disposition home or self-care (01) ==
LOC: ER 12:49
DX: K57.10 Diverticulosis of small intestine without perforation or abscess without bleeding (principal); K52.9 Noninfective gastroenteritis and colitis, unspecified; R11.2 Nausea with vomiting, unspecified; R74.01 Elevation of levels of liver transaminase levels
CPT/HCPCS: 36415; 74177; 80053; 80307; 81001; 83690; 83735; 85007; 85025; 96361; 96374; 96375; 96376; 99285; G0480; J1630; J2405; J2765; J3490; J7030; Q9967